=== PATIENT | female | born 1985 | race Caucasian/White ===

== ENCOUNTER 2017-06-23 10:52 | Emergency (ER) | payer OTHER ==
[2017-06-23 11:00] VITALS: BP 143/90; TEMP 99.2; BMI 29.2
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
[2017-06-23 11:30] VITALS: PULSE 92
== END 2017-06-23 11:29 | disposition home or self-care (01) ==
LOC: FER 10:52
DX: S13.4XXA Sprain of ligaments of cervical spine, initial encounter (principal); V44.9XXA Unspecified car occupant injured in collision with heavy transport vehicle or bus in traffic accident, initial encounter; Y93.89 Activity, other specified; Y92.410 Unspecified street and highway as the place of occurrence of the external cause; F17.210 Nicotine dependence, cigarettes, uncomplicated; F41.9 Anxiety disorder, unspecified
CPT/HCPCS: 99282-25

== ENCOUNTER 2019-07-31 17:40 | Inpatient (IN) | payer OTHER ==
[2019-07-31 18:55] VITALS: BMI 35.5
[2019-07-31] MEDS ORDERED: DEXTROSE 5%-LACTATED RINGERS 1,000 ML IV SCH ×2 (19:00→22:30)
[2019-07-31 19:07] LABS: URINE APPEARANCE CLEAR; URINE BILIRUBIN NEGATIVE (NEGATIVE); URINE COLOR YELLOW; URINE GLUCOSE (UA) NEGATIVE (NEGATIVE); URINE KETONE NEGATIVE (NEGATIVE); URINE LEUK ESTERASE NEGATIVE (NEGATIVE); URINE NITRITE NEGATIVE (NEGATIVE); URINE PROTEIN NEGATIVE (NEGATIVE); URINE UROBILINOGEN 0.2 mg/dL (0.2-1.0)
[2019-07-31 19:13] LABS: BASO % 0.3 % (0-2.0); EOS % 0.4 % (0-4.5); HEMATOCRIT 36.2 % (32.4-45.2); LYMPH % 18.7 % (8-40); MCH 27.4 pg (25.7-33.7); MCHC 33.1 g/dl (32.0-36.0); MEAN CELL VOLUME 82.8 fl (80-96); MEAN PLT VOLUME 8.8 fl (7.5-11.1); MONO % 5.4 % (3.8-10.2); NEUT % 75.2 % (42.8-82.8); PLATELET COUNT 313 K/MM3 (134-434); RBC 4.37 M/mm3 (3.60-5.2); RDW 15.7 % (11.6-15.6); WHITE BLOOD COUNT 7.8 K/mm3 (4.0-10.0)
[2019-07-31 19:29] LABS: INR 0.93 (0.83-1.09)
[2019-07-31 19:31] LABS: ACTIVATED PTT 29.9 SECONDS (25.2-36.5)
[2019-07-31 19:50] LABS: ALBUMIN 2.7 g/dl (3.4-5.0); BILIRUBIN,TOTAL 0.4 mg/dL (0.2-1); CALCIUM 10.6 mg/dL (8.5-10.1); CREATININE 0.6 mg/dL (0.55-1.3); POTASSIUM 3.6 mmol/L (3.5-5.1); TOT PROT 6.2 g/dl (6.4-8.2); URIC ACID 4.6 mg/dL (2.6-7.2)
[2019-07-31] MEDS ORDERED: DINOPROSTONE 10 MG VAGINAL SUPPOSITORY VG ONE (20:30)
--- NOTE | 2019-07-31 21:49 | HP ---
Past Medical History - Primary Care Physician PCP:: Mandy Walton - Admission Chief Complaint: 34yo @ 38.6wks with Oligohydramnious, modarately elavated BP, no SKELTON, no visual changes no ctx, no Vb, no LOF, + FM History of Present Illness: 1. h/o Depression/Anxiety/ Psych hospitalization - has Therapist and Wheel Presser - took Welbutrin 300mg/day through , never had suicidal/ homicidal ideation 2. AMA - negative Cell free DNA testing 3. GBS neg History Source: Patient, Medical Record Limitations to Obtaining History: No Limitations - Past Medical History Reproductive: Yes: Other (Abnormal PAP, HPV pos, 2018 [place] 1) ...: 4 ...Para: 0 ...Term: 0 ...: 0 ...Spon : 0 ...Induced : 3 (D&C x3 ) ...Multiple Gestation: 0 ...LMP: 11/02/18 ... Weeks Gestation by Dates: 38.5 ...EDC by Dates: 08/09/18 Psych: Yes: Anxiety, Depression - Past Surgical History Hx Myomectomy: No Hx Transabdominal Cerclage: No Additional Surgical History: Breast reduction. D&C x 3. Epidural steroid injections - herniated disks - Smoking History Smoking history: Never smoked Have you smoked in the past 12 months: No Aproximately how many cigarettes per day: 10 If you are a former smoker, when did you quit?: As soon as found out she is - Alcohol/Substance Use Hx Alcohol Use: No - Social History History of Recent Travel: No Home Medications - Allergies Allergies/Adverse Reactions: Allergies Allergy/AdvReac Type Severity Reaction Status Date / Time No Known Allergies Allergy Verified 07/31/19 18:47 - Home Medications Home Medications: Ambulatory Orders Bupropion HCl [Wellbutrin -] 300 mg PO DAILY 07/07/12 Vit No.129/Iron/Folic [ One Daily Tablet] 1 tab PO DAILY Family Disease History - Family Disease History Other Family History: Maternal aunt with breast CA Review of Systems - Review of Systems Constitutional: reports: No Symptoms Eyes: reports: No Symptoms HENT: reports: No Symptoms Neck: reports: No Symptoms Cardiovascular: reports: No Symptoms Respiratory: reports: No Symptoms Gastrointestinal: reports: No Symptoms Genitourinary: reports: No Symptoms Breasts: reports: No Symptoms Reported Musculoskeletal: reports: No Symptoms Integumentary: reports: No Symptoms Neurological: reports: No Symptoms Endocrine: reports: No Symptoms Hematology/Lymphatic: reports: No Symptoms Psychiatric: reports: No Symptoms Physical Exam - Maternity Vital Signs: Vital Signs Temperature 98.3 F 07/31/19 18:17 Pulse Rate 94 H 07/31/19 21:00 Respiratory Rate 18 07/31/19 21:00 Blood Pressure 147/81 07/31/19 21:00 O2 Sat by Pulse Oximetry (%) Constitutional: Yes: Well Nourished, No Distress, Calm Eyes: Yes: WNL, Conjunctiva Clear HENT: Yes: WNL, Atraumatic, Normocephalic Neck: Yes: WNL, Supple, Trachea Midline Cardiovascular: Yes: WNL, Regular Rate and Rhythm Lungs: Clear to auscultation Breast(s): Yes: WNL - Abdominal Exam/OB Fundal Height: 38 Number of Fetuses: Single Presentation: Vertex Contractions: No Monitor Mode: External Heart Rate (range): 130 Category: I Accelerations: Uniform Decelerations: None - Vaginal Exam/OB Vaginal Bleediing: No Speculum Exam: No Dilatation (cm): 1 Effacement (%): long Amniotic Membrane Status: Intact Presentation: Vertex/Position Station: -3 - Physical Exam Musculoskeletal: Yes: WNL Extremities: Yes: WNL Edema: No Integumentary: Yes: WNL ...Motor Strength: WNL Psychiatric: Yes: WNL, Alert, Oriented - Labs Lab Results: CBC, BMP 07/31/19 18:45 07/31/19 18:45 Assessment/Plan We had long discussion re: risks, benefits, and alternatives of labor induction. I explained the options of expectant management awaiting spontaneous labor, induction of labor, and elective section. The risks of uterine tachysystole, distress, uterine rupture, need for emergency C/S, hemorrhage, infection, scarring, etc. were discussed. We also discussed the risks of meconium aspiration, shoulder dystocia, and anesthesia options. The pt requested to proceed with induction. We discussed the alternative methods of induction with Cervidil, Cytotec, Folley ballon, and pitocin. The pt prefers starting Cervidil. Will monitor BPs, follow PEC labs
[2019-07-31] MEDS ORDERED: BUTORPHANOL TARTRATE 1 MG/ML VIAL IVPUSH ONE (22:29)
[2019-07-31] MEDS ORDERED: PROMETHAZINE HCL 25 MG/1 ML VIAL IVPUSH ONE (22:29)
[2019-07-31] MEDS ORDERED: ELECTROLYTE-148 SOLN 1,000 ML IV SCH (22:30)
--- NOTE | 2019-08-01 01:36 | PN ---
Progress Note, Labor Vaginal Exam #1 Labor Exam Date: 08/01/19 Labor Exam Time: 01:30 Heart Rate (range): 150 Dilatation: 2 Effacement (%): 50% Amniotic Membrane Status: Intact Presentation: Vertex/Position Station: -3 Remarks: Repetitive variable deceleration Category 2 FHR recommended Primary c/section Procedure R/B/A discussed consent signed and witnessed
[2019-08-01] MEDS ORDERED: morphine SULFATE/PF 0.5 MG/ML (2cc Syringe - QUVA) EP ONE (02:57)
[2019-08-01] MEDS ORDERED: ONDANSETRON 4 MG/2 ML VIAL IVPUSH PRN (02:57)
[2019-08-01] MEDS ORDERED: METHYLERGONOVINE MALEATE 0.2 MG/1 ML AMP IM PRN (03:11)
--- NOTE | 2019-08-01 03:15 | OP ---
Operative Note - Note: Operative Date: 08/01/19 Pre-Operative Diagnosis: 34yo P0 @39wks with oligohydramnious, Repetetive varriable decels, Category 2 FHR remote from delivery Operation: Primary c/section Findings: 1. Viable male, APGARs 9/9 7.1lb 2. Placenta sent to pathology 3. normal tubes and ovaries Post-Operative Diagnosis: Same as Pre-op Surgeon: [facility] Monitor: Ezekiel Moreno Anesthesiologist/HAND PACKER: Chidi Pompa Anesthesia: Spinal Estimated Blood Loss (mls): 600 Drains, Volume Out (mls): 150 Fluid Volume Replaced (mls): 1,600 Operative Report Dictated: Yes
--- NOTE | 2019-08-01 03:15 | PN ---
Delivery - Delivery Section: Primary Type of Anesthesia: Spinal Episiotomy/Laceration: None EBL (cc): 600 Delivery, Single - Stages of Labor Date of Delivery: 08/01/19 Time of Delivery: 04:12 Date Placenta Delivered: 08/01/19 Time Placenta Delivered: :13 Placenta: Yes: Expressed - Condition of Infant Electronics Installer/Cushion Stuffer Present: Yes Name: Gilbert Schneider Gender: Male Weight: 7 lb 1 oz Position: Left, OA - 1 Minute Total Score: 9 5 Minutes Total Score: 9 - Feeding Plan Initial Plan: Exclusive throughout hospitalization Remarks - Remarks Remarks: Uncomplicated delivery of head and shoulders Decreased amount of fluid noted Thin low uterine segment Uterus closed in 2 layers Peretoneum and muscle closed
[2019-08-01] MEDS ORDERED: morphine SULFATE/PF 0.5 MG/ML (2cc Syringe - QUVA) ONE (03:38)
[2019-08-01] MEDS ORDERED: ceFAZolin SODIUM 1 GM VIAL ONE (03:39)
[2019-08-01] MEDS ORDERED: SODIUM CHLORIDE 0.9% P/F 10 ML VIAL IJ ONE (03:39)
[2019-08-01] MEDS ORDERED: OXYTOCIN 10 UNITS/ML VIAL ONE (04:11)
[2019-08-01] MEDS ORDERED: PHENYLEPHRINE HCL 10 MG/1 ML SINGLE DOSE VIAL ONE (04:11)
[2019-08-01] MEDS ORDERED: OXYTOCIN 20 UNITS in 0.9% NS 20 UNIT/1,000 ML INFUS.BAG IV ONE ×2 (05:11→05:14)
[2019-08-01] MEDS: IBUPROFEN 800 MG/8 ML IJ IVPB PRN ×2 (09:50→17:16)
--- NOTE | 2019-08-01 10:28 | OP ---
DATE OF OPERATION: 08/01/2019 PREOPERATIVE DIAGNOSIS: A 34-year-old para 0 at 39 weeks with oligohydramnios, repetitive variable decelerations, category 2 heart rate, remote from delivery. PROCEDURE PERFORMED: Primary section. FINDINGS: Viable male, Apgars of 9 and 9, weighing 7.1 pounds. Placenta was sent to pathology. Normal tubes and ovaries were found. POSTOPERATIVE DIAGNOSIS: A 34-year-old para 0 at 39 weeks with oligohydramnios, repetitive variable decelerations, category 2 heart rate, remote from delivery. SURGEON: Mandy Walton M.D. AIR CONDITIONING UNIT TESTER: DONTAE Gee ANESTHESIOLOGIST: Chidi Pompa M.D. ANESTHESIA: Spinal. DESCRIPTION OF PROCEDURE: After ensuring informed consent, the patient was brought to the operating room, where spinal anesthesia was performed. The patient was placed in the dorsal supine position with a left lateral tilt. A Pfannenstiel incision was made with a scalpel and carried down to the level of the fascia with Bovie cautery. The fascia was incised in the midline. The incision was extended bilaterally with Bovie cautery. The fascia was dissected off the rectus abdominis muscle with Bovie cautery inferiorly and superiorly. The muscle was split in the midline, and the peritoneum was identified, tented and dissected sharply, with good visualization of underlying organs. The peritoneal incision was extended. The bladder was retracted with the lower edge of the [place]. The gutters were blocked with moist lap sponges. The vesicouterine peritoneum was tented and dissected off the anterior wall of the uterus and retracted with the lower edge of the [place]. A lower segment transverse uterine incision was made with the scalpel and dissected bilaterally with bandage scissors. The was delivered atraumatically, suctioned upon delivery, the cord clamped and cut, and handed to pediatricians. A portion of the cord was given for determination of gases. The placenta was expressed manually without difficulty. The uterus was cleared of clots and debris, and repaired with 0 Biosyn in a running locking fashion. A 2nd imbricating layer was created with 0 Biosyn. The abdomen was irrigated. Lap sponges were removed. The abdominal cavity was repaired with 0 Biosyn on peritoneum. The muscle was reapproximated at the midline. The fascia was repaired with 0 Vicryl, and the skin was closed with subcutaneous 2-0 Vicryl suture first and then the skin was repaired with 4-0 Biosyn V-Loc stitch. Excellent hemostasis was noted throughout. Sponge and instrument counts were correct x2. Estimated blood loss was 600 mL. Urine output was 150. The patient received 1600 mL of IV fluids, and was brought stable to the recovery room. Gale [id number]
[2019-08-01] MEDS ORDERED: ENOXAPARIN NA (PORCINE) 40 MG/0.4 ML DISP.SYRIN SQ ONE (15:14)
[2019-08-01] MEDS: SIMETHICONE 80 MG TAB.CHEW (FP) PO PRN (22:28)
[2019-08-01] MEDS: oxyCODONE HCL 5 MG TABLET PO PRN (22:28)
[2019-08-01] MEDS: ACETAMINOPHEN 325 MG TABLET (FP) PO PRN (22:29)
[2019-08-02] MEDS: ACETAMINOPHEN 325 MG TABLET (FP) PO PRN ×5 (02:44→23:27)
[2019-08-02] MEDS: oxyCODONE HCL 5 MG TABLET PO PRN ×5 (02:44→23:26)
[2019-08-02] MEDS: SIMETHICONE 80 MG TAB.CHEW (FP) PO PRN ×5 (02:45→23:27)
[2019-08-02] MEDS ORDERED: BISACODYL 10 MG SUPP.RECT RC PRN (03:11)
[2019-08-02 08:08] LABS: BASO % 0.3 % (0-2.0); EOS % 0.2 % (0-4.5); HEMATOCRIT 31.7 % (32.4-45.2); HEMOGLOBIN 10.5 GM/dL (10.7-15.3); LYMPH % 13.9 % (8-40); MCH 27.8 pg (25.7-33.7); MCHC 33.1 g/dl (32.0-36.0); MEAN PLT VOLUME 8.5 fl (7.5-11.1); MONO % 6.8 % (3.8-10.2); NEUT % 78.8 % (42.8-82.8); PLATELET COUNT 298 K/MM3 (134-434); RBC 3.77 M/mm3 (3.60-5.2); RDW 15.6 % (11.6-15.6); WHITE BLOOD COUNT 11.4 K/mm3 (4.0-10.0)
--- NOTE | 2019-08-02 12:52 | PN ---
Progress Note (short form) - Note Progress Note: Anesthesia POD#1 S/P under spinal and Duramorph VSS,no N/V,pain is mild,legs are fully recovered. Winnie Fish MD.
[2019-08-02] MEDS: IBUPROFEN 600 MG TABLET (FP) PO PRN ×2 (16:17→23:27)
--- NOTE | 2019-08-02 18:43 | PN ---
Post Progress Note - Subjective Subjective: No complaints. Good mood. Tolerated diet. Passing flatus. Pain is well controlled. Type of Delivery: Primary C/S Vital Signs: Vital Signs Temperature 98.2 F 08/02/19 10:00 Pulse Rate 102 H 08/02/19 10:00 Respiratory Rate 20 08/02/19 10:00 Blood Pressure 134/80 08/02/19 10:00 O2 Sat by Pulse Oximetry (%) 100 08/01/19 07:35 Breast Exam: Yes: Soft Uterus: Yes: Fundus Firm, Fundus below umbilicus Incision: Yes: Dressing dry and intact Abdomen/GI: Yes: Abdomen soft, Passing flatus, Tolerating PO Lochia: Yes: Rubra Lochia, amount: Small Extremities: Yes: Calves non-tender Perineum: Yes: Intact Activity: Ambulating - Labs Labs: CBC WBC 11.4 K/mm3 (4.0-10.0) H 08/02/19 07:28 RBC 3.77 M/mm3 (3.60-5.2) 08/02/19 07:28 Hgb 10.5 GM/dL (10.7-15.3) L 08/02/19 07:28 Hct 31.7 % (32.4-45.2) L 08/02/19 07:28 MCV 84.0 fl (80-96) 08/02/19 07:28 MCH 27.8 pg (25.7-33.7) 08/02/19 07:28 MCHC 33.1 g/dl (32.0-36.0) 08/02/19 07:28 RDW 15.6 % (11.6-15.6) 08/02/19 07:28 Plt Count 298 K/MM3 (134-434) 08/02/19 07:28 MPV 8.5 fl (7.5-11.1) 08/02/19 07:28 Absolute Neuts (auto) 9.0 K/mm3 (1.5-8.0) H 08/02/19 07:28 Neutrophils % 78.8 % (42.8-82.8) 08/02/19 07:28 Lymphocytes % 13.9 % (8-40) D 08/02/19 07:28 Monocytes % 6.8 % (3.8-10.2) 08/02/19 07:28 Eosinophils % 0.2 % (0-4.5) 08/02/19 07:28 Basophils % 0.3 % (0-2.0) 08/02/19 07:28 Nucleated RBC % 0 % (0-0) 08/02/19 07:28 Assessment/Plan POD # 1 s/p primary LT C/S Pt is stable and afebrile. She is asymptomatic for anemia Advised to ambulate. Advance diet.
--- NOTE | 2019-08-03 06:03 | PN ---
Progress Note (short form) - Note Progress Note: pod 2 s/p c/s, ambulating , passing gas CBC, BMP 08/02/19 07:28 07/31/19 18:45 Last Vital Signs Temp Pulse Resp BP Pulse Ox 98.2 F 95 H 18 126/65 100 08/02/19 22:00 08/02/19 22:00 08/02/19 22:00 08/02/19 22:00 08/01/19 07:35 abdomen soft, no distension , no cva incision dry, clean no calf tenderness lochia mild , no calf tenderness plan ambulate , cbc in am pain management
[2019-08-03] MEDS: SIMETHICONE 80 MG TAB.CHEW (FP) PO PRN ×2 (07:13→20:12)
[2019-08-03] MEDS: oxyCODONE HCL 5 MG TABLET PO PRN (07:13)
[2019-08-03] MEDS: IBUPROFEN 600 MG TABLET (FP) PO PRN ×3 (07:15→20:12)
--- NOTE | 2019-08-03 11:12 | PATH ---
Surgical Pathology Report Patient Name: DARREL FORDE [facility]. Rec. 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 Specimen(s) Received PLACENTA Clinical History 34-year-old, , hypertension, mild preeclampsia, oligo Final Diagnosis PLACENTA, SECTION: 555 G THIRD TRIMESTER PLACENTA WITH TRIVASCULAR UMBILICAL CORD AND UNREMARKABLE PLACENTAL MEMBRANES. Electronically Signed Nicci Ford M.D. Gross Description The specimen is received fresh labeled placenta and is a 555 gram, 20 x 18 x 2 cm. placenta with attached membranes and umbilical cord. The attached membranes are clear and translucent and insert marginally. The umbilical cord measures 19 cm. in length and averages 2 cm. in diameter. The cord inserts eccentrically, 6 cm. to the nearest margin. No true knots or strictures are identified. Cut surface of the umbilical cord reveals 3 vessels. The surface is barraza-blue with minimal fibrin deposition and appropriate caliber vessels. The maternal surface is red-brown with focal defects. Sectioning reveals red-brown, spongy parenchyma. No lesions are identified. Die Machine Operator sections are submitted in three cassettes as follows: 1- membrane rolls and umbilical cord; 2-3- full thickness sections of placenta. MLSZ/08/01/2019 sanronel/08/01/2019
[2019-08-03] MEDS: ACETAMINOPHEN 325 MG TABLET (FP) PO PRN ×2 (12:07→20:12)
--- NOTE | 2019-08-04 06:13 | DS ---
Physical Exam-OWNER SPA DIRECTOR Vital Signs: Vital Signs Temperature 98.2 F 08/03/19 20:48 Pulse Rate 102 H 08/03/19 20:48 Respiratory Rate 20 08/03/19 20:48 Blood Pressure 144/87 08/03/19 20:48 O2 Sat by Pulse Oximetry (%) 100 08/01/19 07:35 Constitutional: Yes: Well Nourished, No Distress, Calm Eyes: Yes: WNL, Conjunctiva Clear, EOM Intact HENT: Yes: WNL, Atraumatic, Normocephalic Neck: Yes: WNL, Supple, Trachea Midline Cardiovascular: Yes: WNL, Regular Rate and Rhythm Respiratory: Yes: WNL, Regular, CTA Bilaterally Gastrointestinal: Yes: WNL ...Rectal Exam: Yes: WNL Renal/: Yes: WNL ....Post : Yes: Uterus firm, Uterus non-tender, Slight lochia rubra Breast(s): Yes: WNL Musculoskeletal: Yes: WNL Extremities: Yes: WNL Edema: No Integumentary: Yes: WNL, Onychomycosis Wound/Incision: Yes: Clean/Dry, Well Approximated, Sutures Intact Neurological: Yes: WNL, Alert, Oriented ...Motor Strength: WNL Psychiatric: Yes: WNL, Alert, Oriented Labs: CBC, BMP 08/02/19 07:28 07/31/19 18:45 Delivery - Delivery Section: Primary, Low Flap Transverse Type of Anesthesia: Spinal Episiotomy/Laceration: None EBL (cc): 600 Delivery, Single - Stages of Labor Date of Delivery: 08/01/19 Time of Delivery: 04:12 Time Placenta Delivered: 04:13 Placenta: Yes: Expressed - Condition of Open 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 Door 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/Retail 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 Service Representative Present: Yes Name: Gilbert Schneider Infant Gender: Male Weight: 7 lb 1 oz Position: Left, OA Total Hours ROM (Hrs/Mins): 2 minutes - 1 Minute Total Score: 9 5 Minutes Total Score: 9 - Feeding Plan Initial Plan: Exclusive throughout hospitalization Discharge Summary Reason For Visit: INDUCTION OF LABOR Procedures: Principal: LSTc/s Hospital Course: no complication Condition: Good - Instructions Diet, Activity, Other Instructions: regular diet, , if pain, heavy vaginal bleeding, fever call MD, follow up office 1week Referrals: Mandy Walton MD [Staff Physician] - Disposition: HOME - Home Medications Comprehensive Discharge Medication List: Ambulatory Orders Bupropion HCl [Wellbutrin -] 300 mg PO DAILY 07/07/12 Vit No.129/Iron/Folic [ One Daily Tablet] 1 tab PO DAILY Ibuprofen [Motrin -] 600 mg PO QID #28 tablet 08/03/19
[2019-08-04] MEDS: IBUPROFEN 600 MG TABLET (FP) PO PRN (08:06)
[2019-08-04] MEDS: ACETAMINOPHEN 325 MG TABLET (FP) PO PRN (08:07)
[2019-08-04] MEDS: SIMETHICONE 80 MG TAB.CHEW (FP) PO PRN (08:08)
[2019-08-04 08:22] LABS: BASO % 0.5 % (0-2.0); EOS % 1.9 % (0-4.5); HEMATOCRIT 33.3 % (32.4-45.2); HEMOGLOBIN 11.1 GM/dL (10.7-15.3); LYMPH % 15.5 % (8-40); MCH 27.9 pg (25.7-33.7); MCHC 33.5 g/dl (32.0-36.0); MEAN CELL VOLUME 83.3 fl (80-96); MEAN PLT VOLUME 8.3 fl (7.5-11.1); MONO % 7.5 % (3.8-10.2); NEUT % 74.6 % (42.8-82.8); PLATELET COUNT 396 K/MM3 (134-434); RDW 15.8 % (11.6-15.6); WHITE BLOOD COUNT 8.1 K/mm3 (4.0-10.0)
[2019-08-04 09:13] VITALS: BP 131/86; PULSE 97; TEMP 98.5
== END 2019-08-04 12:00 | disposition home or self-care (01) | DRG 787 ==
LOC: JLDR 17:40 → J3W 08-01 08:08
PROVIDERS: ADMIT Obstetrics & Gynecology; ATTEND Obstetrics & Gynecology
PROC: 10D00Z1 Extraction of Products of Conception, Low, Open Approach (ICD-10-PCS; principal; 2019-08-01)
DX: O76 Abnormality in fetal heart rate and rhythm complicating labor and delivery (principal); O41.03X0 Oligohydramnios, third trimester, not applicable or unspecified; O99.344 Other mental disorders complicating childbirth; F41.8 Other specified anxiety disorders; O99.02 Anemia complicating childbirth; D64.9 Anemia, unspecified; Z3A.38 38 weeks gestation of pregnancy; Z37.0 Single live birth
CPT/HCPCS: 36415; 36600; 80053; 81003; 82803; 84550; 85025; 85610; 85730; 86593; 86850; 86900; 86901; 87389; 88307-TC

== ENCOUNTER 2020-07-26 08:44 | Emergency (ER) | payer OTHER ==
--- NOTE | 2020-07-26 08:48 | PDOC ---
History of Present Illness - General Chief Complaint: Pain Stated Complaint: abd pain Time Seen by Provider: 07/26/20 08:48 - History of Present Illness Initial Comments: 07/26/20 10:21 Chief complaint: Abdominal pain HPI: Left lower quadrant abdominal pain since last night. Awoke from sleep. Recurred this morning. Aggravated by moving and going over bumps in the car. , LMP June 24, 4 para 1 with healthy 1-year-old child by C- section. 2 pregnancies years ago or electively terminated. Preeclampsia with prior child, born 2 to 3 weeks early, no medical complications. Review of systems: Mild nausea, no vomiting, soft stool last night but no diarrhea. No hematemesis melena or bloody stool. No dysuria frequency urgency hesitancy or hematuria. No vaginal bleeding, small amount of white mucoid disc harge, no pain, itching, or lesions. Denies fever/chills, headache, URI symptoms, sore throat, cough, chest pain, shortness of breath, visual or focal neurologic symptoms, unsteadiness of gait. Remainder of systems reviewed and negative Past medical history: Preeclampsia, 1 year ago. No other abdominal surgery. No known GI disease. Frequent UTIs when she was young, as well as during her prior . No regular medication. Tested for COVID 1 week ago, negative, at the time being treated with amoxicillin and eyedrops for conjunctivitis. Finished amoxicillin yesterday. Social history: Cigarette smoker but planning to quit with this . Occasional social alcohol, none recently. No illicit drugs. Stable home and family. Denies anxiety or depression Family history: Reviewed and noncontributory including early coronary artery disease, GI disease, metabolic disease including diabetes, cancer, blood clotting disorders. Physical exam: Alert and oriented well-developed well-nourished, mild distress due to lower abdominal pain, though no pain while at rest unless moving around. Afebrile, vital signs normal No pallor or icterus. PERRLA, fundi benign, ENT clear Neck supple without bruit mass or nodes Chest clear, full breath sounds bilaterally CV S1-S2 normal without murmur rub or gallop pulses full and symmetric no JVD or edema no bruits. No tachycardia Abdomen nondistended. Bowel sounds normal. Soft without mass or organomegaly. There is mild to moderate tenderness localized to the left lower quadrant with deep palpation, though no guarding or rebound. No CVAT Skin clear, no rash, adequate turgor and wet mucous membranes Extremities no CCE Neurological intact. Gait stable and unimpaired Impression: Left mid abdominal and left lower quadrant pain, worse with movement and with jarring while riding in the car, though no rebound could be elicited on examination. Possibilities include complications of including ectopic. Also possible corpus luteal cyst with rupture. Less likely diverticulitis or pyelonephritis, renal colic. Plan: Labs and ultrasound looking at the uterus and ovaries, kidneys and urinary tract.. Further evaluation depending on results. Past History - Medical History Allergies/Adverse Reactions: Allergies Allergy/AdvReac Type Severity Reaction Status Date / Time No Known Allergies Allergy Verified 07/31/19 18:47 Home Medications: Ambulatory Orders Bupropion HCl [Wellbutrin -] 300 mg PO DAILY 07/07/12 Asthma: No Cancer: No Cardiac Disorders: No Diabetes: No HTN: No Psychiatric Problems: Yes (ANXIETY) Seizures: No Thyroid Disease: No - Psycho-Social/Smoking History Smoking Status: No Smoking History: Never smoked Have you smoked in the past 12 months: No Number of Cigarettes Smoked Daily: 10 If you are a former smoker, when did you quit?: As soon as found out she is 'Breaking Loose' booklet given: 06/23/17 ED Treatment Course - LABORATORY CBC & Chemistry Diagram: 07/26/20 09:29 07/26/20 09:29 Medical Decision Making - Medical Decision Making 07/26/20 10:31 CBC, chemistries, and urinalysis without significant abnormalities other than positive test. No anemia. No UTI. 07/26/20 12:16 Ultrasound reveals small calcification of the right kidney, probably not related to current symptoms. There is an early IUP with pole visible. No heartbeat as yet. There is a large hemorrhagic left ovarian cyst which is probably responsible for the patient's pain Patient states that her his pain has improved since her arrival. She appears comfortable at present. Results of ultrasound were furnished to the patient and she is to consult her [facility] physician as soon as possible, preferably within 1 to 2 days. She understands and agrees. Return to ER if pain worsens or other symptoms develop. Fully ambulatory and in no severe discomfort at discharge. Discharge - Discharge Information Problems reviewed: Yes Clinical Impression/Diagnosis: Other ovarian cyst, left side Condition: Improved Disposition: HOME - Admission No - Follow up/Referral - Patient Discharge Instructions Patient Printed Discharge Instructions: DI for Ovarian Cyst Additional Instructions: Phone your [facility] doctor today, inform of pain and emergency room visit, request appointment for reevaluation as soon as possible. Return to ER if pain is worse or additional symptoms develop, especially vaginal bleeding. - Post Discharge Activity
[2020-07-26 09:06] VITALS: BP 113/70; PULSE 65; TEMP 98.1; BMI 31.2
[2020-07-26 10:03] LABS: BASO % 0.8 % (0-2.0); EOS % 1.5 % (0-4.5); HEMATOCRIT 41.1 % (32.4-45.2); HEMOGLOBIN 13.7 GM/dl (10.7-15.3); LYMPH % 17.2 % (8-40); MCH 29.2 pg (25.7-33.7); MCHC 33.2 g/dl (32.0-36.0); MEAN CELL VOLUME 87.9 fl (80-96); MEAN PLT VOLUME 8.5 fl (7.5-11.1); MONO % 8.5 % (3.8-10.2); PLATELET COUNT 338 K/MM3 (134-434); RBC 4.68 M/mm3 (3.60-5.2); RDW 13.3 % (11.6-15.6); WHITE BLOOD COUNT 6.2 K/mm3 (4.0-10.8)
[2020-07-26 10:11] LABS: ALBUMIN 4.3 g/dl (3.4-5.0); BILIRUBIN,TOTAL 0.4 mg/dl (0.2-1); CALCIUM 9.1 mg/dl (8.5-10); CREATININE 0.5 mg/dl (0.55-1.3); POTASSIUM 3.7 mmol/L (3.5-5.1)
== END 2020-07-26 13:12 | disposition home or self-care (01) ==
LOC: FER 08:44
DX: N83.202 Unspecified ovarian cyst, left side (principal)
CPT/HCPCS: 36415; 76775-TC; 76801-TC; 80053; 81003; 81025; 84702; 84703; 85025; 99284-25

== ENCOUNTER 2021-03-21 12:40 | Inpatient (IN) | payer OTHER ==
[2021-03-21] MEDS ORDERED: PROMETHAZINE HCL 25 MG/1 ML VIAL ONE (13:27)
[2021-03-21] MEDS ORDERED: PROMETHAZINE HCL 25 MG/1 ML VIAL IVPB ONE (13:30)
[2021-03-21 14:24] VITALS: BMI 39.0
[2021-03-21] MEDS ORDERED: CITRIC ACID/SODIUM CITRATE 30 ML UNIT-DOSE CUP PO ONE (14:45)
[2021-03-21] MEDS ORDERED: ELECTROLYTE-148 SOLN 500 ML IV ONE (14:45)
[2021-03-21] MEDS ORDERED: ELECTROLYTE-148 SOLN 1,000 ML IV SCH (18:30)
[2021-03-21] MEDS ORDERED: ePHEDrine SULFATE 50 MG/1 ML AMPULE ONE (19:18)
[2021-03-21] MEDS ORDERED: KETOROLAC TROMETHAMINE 30 MG/1 ML VIAL ONE (19:21)
[2021-03-21] MEDS ORDERED: OXYTOCIN 10 UNITS/ML VIAL ONE (19:21)
[2021-03-21] MEDS ORDERED: ONDANSETRON 4 MG/2 ML VIAL ONE (19:21)
[2021-03-21] MEDS ORDERED: ceFAZolin SODIUM 1 GM VIAL ONE (19:21)
[2021-03-21] MEDS ORDERED: oxyCODONE HCL 5 MG TABLET PO PRN (20:07)
[2021-03-21] MEDS ORDERED: BENZOCAINE 28 GM HEMORRHOIDAL OINTMENT TP PRN (20:07)
[2021-03-21] MEDS ORDERED: METHYLERGONOVINE MALEATE 0.2 MG/1 ML AMP IM PRN (20:07)
[2021-03-21] MEDS ORDERED: SENNOSIDES/DOCUSATE COMBO (SENNA PLUS) TABLET (UD) PO PRN (20:07)
[2021-03-21] MEDS ORDERED: BENZOCAINE 20% 57 GM BOTTLE TP PRN (20:07)
[2021-03-21] MEDS ORDERED: WITCH HAZEL 50% (TUCKS) 40 PAD/JAR PAD TP PRN (20:07)
[2021-03-21] MEDS ORDERED: IBUPROFEN 800 MG/8 ML IJ IVPB PRN (20:07)
[2021-03-21] MEDS ORDERED: OXYTOCIN 20 UNITS in 0.9% NS 20 UNIT/1,000 ML INFUS.BAG IV SCH (20:15)
[2021-03-21] MEDS ORDERED: ACETAMINOPHEN 325 MG TABLET (FP) PO PRN (20:20)
[2021-03-21] MEDS ORDERED: ONDANSETRON 4 MG/2 ML VIAL IVPUSH PRN (20:20)
[2021-03-21 21:15] LABS: CORD BASE EXCESS -3.5 mmol/L (0-2); CORD HCO3 22.7 mmHg (20-29); CORD PCO2 45.1 mmHg (30-78); CORD pH 7.32 (7.14-7.44)
[2021-03-21 21:20] LABS: CORD BASE EXCESS -4.8 mmol/L (0-2); CORD pH 7.288 (7.14-7.44)
[2021-03-22 08:11] LABS: BASO % 0.3 % (0-2.0); EOS % 0.4 % (0-4.5); HEMATOCRIT 33.4 % (32.4-45.2); LYMPH % 12.6 % (8-40); MCH 27.1 pg (25.7-33.7); MCHC 32.8 g/dl (32.0-36.0); MEAN CELL VOLUME 82.5 fl (80-96); MEAN PLT VOLUME 8.5 fl (7.5-11.1); MONO % 6.3 % (3.8-10.2); NEUT % 80.4 % (42.8-82.8); PLATELET COUNT 250 K/MM3 (134-434); RBC 4.05 M/mm3 (3.60-5.2); RDW 16.5 % (11.6-15.6); WHITE BLOOD COUNT 6.5 K/mm3 (4.0-10.0)
[2021-03-22] MEDS: oxyCODONE HCL 5 MG TABLET PO PRN ×3 (12:30→20:37)
[2021-03-22] MEDS: ACETAMINOPHEN 325 MG TABLET (FP) PO PRN ×2 (12:31→16:33)
[2021-03-22] MEDS: SIMETHICONE 80 MG TAB.CHEW (FP) PO PRN ×2 (16:33→20:38)
[2021-03-22] MEDS ORDERED: BISACODYL 10 MG SUPP.RECT RC PRN (20:07)
[2021-03-22] MEDS: IBUPROFEN 600 MG TABLET (FP) PO PRN (20:37)
[2021-03-23] MEDS: SIMETHICONE 80 MG TAB.CHEW (FP) PO PRN ×4 (02:50→18:34)
[2021-03-23] MEDS: oxyCODONE HCL 5 MG TABLET PO PRN ×5 (02:50→20:35)
[2021-03-23] MEDS: IBUPROFEN 600 MG TABLET (FP) PO PRN ×2 (02:51→20:36)
[2021-03-23] MEDS: ACETAMINOPHEN 325 MG TABLET (FP) PO PRN ×3 (08:52→18:34)
[2021-03-24] MEDS: SIMETHICONE 80 MG TAB.CHEW (FP) PO PRN (04:10)
[2021-03-24] MEDS: oxyCODONE HCL 5 MG TABLET PO PRN (04:11)
[2021-03-24] MEDS: IBUPROFEN 600 MG TABLET (FP) PO PRN ×2 (04:11→09:08)
[2021-03-24 08:03] LABS: BASO % 0.5 % (0-2.0); EOS % 1.3 % (0-4.5); HEMATOCRIT 36.5 % (32.4-45.2); HEMOGLOBIN 12.5 GM/dL (10.7-15.3); LYMPH % 22.6 % (8-40); MCH 27.7 pg (25.7-33.7); MCHC 34.2 g/dl (32.0-36.0); MEAN PLT VOLUME 8.2 fl (7.5-11.1); MONO % 8.8 % (3.8-10.2); NEUT % 66.8 % (42.8-82.8); PLATELET COUNT 322 K/MM3 (134-434); RBC 4.51 M/mm3 (3.60-5.2); RDW 16.6 % (11.6-15.6); WHITE BLOOD COUNT 6.3 K/mm3 (4.0-10.0)
[2021-03-24] MEDS: ACETAMINOPHEN 325 MG TABLET (FP) PO PRN (09:09)
[2021-03-24 10:21] VITALS: BP 120/80; PULSE 81; TEMP 97.8
== END 2021-03-24 13:40 | disposition home or self-care (01) | DRG 788 ==
LOC: JLDR 12:40 → J3W 21:44
PROVIDERS: ADMIT Obstetrics & Gynecology; ATTEND Obstetrics & Gynecology
PROC: 10D00Z1 Extraction of Products of Conception, Low, Open Approach (ICD-10-PCS; principal; 2021-03-21)
DX: O34.211 Maternal care for low transverse scar from previous cesarean delivery (principal); N85.8 Other specified noninflammatory disorders of uterus; O99.214 Obesity complicating childbirth; O99.344 Other mental disorders complicating childbirth; F32.9 Major depressive disorder, single episode, unspecified; Z3A.39 39 weeks gestation of pregnancy; Z37.0 Single live birth
CPT/HCPCS: 36415; 36600; 82803; 85025; 88307-TC

== ENCOUNTER 2021-07-21 06:14 | Emergency (ER) | payer OTHER ==
[2021-07-21 06:22] VITALS: BP 128/86; PULSE 102; TEMP 98; BMI 34.2
[2021-07-21] MEDS ORDERED: KETOROLAC TROMETHAMINE 60 MG/2 ML VIAL IM ONE (07:03)
[2021-07-21] MEDS ORDERED: KETOROLAC TROMETHAMINE 60 MG/2 ML VIAL ONE (07:15)
[2021-07-21] MEDS ORDERED: LIDOCAINE 5% TOPICAL PATCH TP ONE (09:15)
[2021-07-21] MEDS ORDERED: LIDOCAINE 5% TOPICAL PATCH ONE (09:17)
[2021-07-21] MEDS ORDERED: LIDOCAINE PATCH REMOVAL MC SCH (22:00)
== END 2021-07-21 09:24 | disposition home or self-care (01) ==
LOC: FER 06:14
PROC: 3E0233Z Introduction of Anti-inflammatory into Muscle, Percutaneous Approach (ICD-10-PCS; principal; 2021-07-21)
DX: M25.512 Pain in left shoulder (principal)
CPT/HCPCS: 71046-TC-FY; 73030-TC-LT-FY; 81025; 99284-25